=== PATIENT | male | born 1995 | race African-American/Black ===

== ENCOUNTER 2022-05-16 01:54 | Emergency (ER) | payer SELFPAY ==
[2022-05-16 02:20] VITALS: BP 116/75; PULSE 77; RESP 18; TEMP 98.1; BMI 38.0
== END 2022-05-16 03:10 | disposition home or self-care (01) ==
LOC: JER 01:54
DX: Z11.52 Encounter for screening for COVID-19 (principal)
CPT/HCPCS: 0241U-QW; 99283-25

== ENCOUNTER 2022-08-18 22:43 | Emergency (ER) | payer SELFPAY ==
[2022-08-18 23:03] VITALS: BP 126/80; PULSE 97; RESP 19; TEMP 98.4; BMI 36.9
[2022-08-19] MEDS ORDERED: MAG HYDROX/AL HYDROX/SIMETH -MYLANTA- ORAL SUSPENSION PO ONE (00:04)
[2022-08-19 01:04] LABS: EOS % 1.1 % (0-4.5); HEMATOCRIT 40.8 % (35.4-49); LYMPH % 17.6 % (8-40); MCH 30.5 pg (25.7-33.7); MCHC 34.4 g/dl (32.0-35.9); MEAN CELL VOLUME 88.8 fl (80-96); MEAN PLT VOLUME 8.7 fl (7.5-11.1); MONO % 7.5 % (3.8-10.2); NEUT % 72.8 % (42.8-82.8); PLATELET COUNT 355 10^3/uL (134-434); RDW 13.6 % (11.9-15.9); WHITE BLOOD COUNT 9.7 K/mm3 (4.0-10.0)
[2022-08-19 01:32] LABS: CALCIUM 9.4 mg/dL (8.5-10.1)
[2022-08-19 01:33] LABS: BLOOD UREA NITROGEN 14.1 mg/dL (7-18)
[2022-08-19 01:36] LABS: CREATININE 1.2 mg/dL (0.55-1.3)
[2022-08-19 01:37] LABS: BILIRUBIN,TOTAL 0.5 mg/dL (0.2-1)
[2022-08-19 01:38] LABS: TOT PROT 7.5 g/dl (6.4-8.2)
[2022-08-19] MEDS ORDERED: KETOROLAC TROMETHAMINE 15 MG/ML VIAL IVPUSH ONE (02:36)
[2022-08-19] MEDS ORDERED: KETOROLAC TROMETHAMINE 15 MG/ML VIAL ONE (02:39)
== END 2022-08-19 04:12 | disposition home or self-care (01) ==
LOC: JER 22:43
PROC: 3E0333Z Introduction of Anti-inflammatory into Peripheral Vein, Percutaneous Approach (ICD-10-PCS; principal; 2022-08-18)
DX: R07.9 Chest pain, unspecified (principal)
CPT/HCPCS: 36415; 71045-TC-FY; 80053; 84484; 85025; 93005; 93010; 99285-25